=== PATIENT | female | born 2000 | race Two or more races ===

== ENCOUNTER 2021-08-30 05:56 | Emergency (ER) | payer MEDICAID ==
[~2021-08-30] VITALS: Ht 160 cm; Wt 77.1 kg
[2021-08-30 07:44] VITALS: BP 120/82
== END 2021-08-30 07:52 | disposition home or self-care (01) ==
LOC: ER 05:56
DX: S39.012A Strain of muscle, fascia and tendon of lower back, initial encounter (principal); X58.XXXA Exposure to other specified factors, initial encounter; Y93.89 Activity, other specified; Y92.89 Other specified places as the place of occurrence of the external cause; Y99.8 Other external cause status
CPT/HCPCS: 93005

== ENCOUNTER 2021-12-20 04:05 | Emergency (ER) | payer MEDICAID ==
[~2021-12-20] VITALS: Ht 157.5 cm; Wt 77.3 kg
[2021-12-20 04:28] VITALS: BP 108/58
== END 2021-12-20 14:42 | disposition left against medical advice (07) ==
LOC: ER 04:05
DX: R10.9 Unspecified abdominal pain (principal); Z53.21 Procedure and treatment not carried out due to patient leaving prior to being seen by health care provider